=== PATIENT | female | born 1970 | race African-American/Black ===

== ENCOUNTER 2017-08-12 03:24 | Inpatient (IN) ==
[2017-08-12] MEDS ORDERED: METOCLOPRAMIDE 10 MG/2 ML VIAL ONE (04:19)
[2017-08-12] MEDS ORDERED: LORazepam 2 MG/1 ML VIAL ONE (04:20)
[2017-08-12] MEDS ORDERED: HYDROmorphone 2 MG/1 ML VIAL ONE (04:20)
[2017-08-12] MEDS ORDERED: DEXAMETHASONE 10 MG/1 ML VIAL ONE ×2 (07:24→09:26)
[2017-08-12] MEDS ORDERED: DEXAMETHASONE 10 MG/1 ML VIAL IV ONE (09:00)
[2017-08-12] MEDS ORDERED: ONDANSETRON 4 MG/2 ML VIAL IV PRN ×2 (10:20→11:54)
[2017-08-12 10:39] LABS: Basophils % 0.3 % (0.0-0.8); Eosinophils # 0.1 10*3/uL (0.0-0.87); Eosinophils % 1.7 % (0.00-10.9); Hematocrit 36.5 VOL% (35.7-47.0); Hemoglobin 12.1 GM/DL (12.0-16.0); Immature Granulocytes % 0.3 %; Immature Granulocytes Absolute 0.01 #; Lymphocytes # 1.1 10*3/uL (1.4-4.0); Lymphocytes % 31.3 % (21.3-54.2); Mean Corpuscular HGB Conc 33.2 GM/DL (32-36); Mean Corpuscular Hemoglobin 29 PG (27-34); Mean Corpuscular Volume 86.3 FL (87-102); Mean Platelet Volume 9.5 FL (9.6-12.0); Monocytes # 0.2 10*3/uL (0.11-0.8); Monocytes % 4.2 % (1.7-12.7); Neutrophils # 2.3 10*3/uL (1.4-7.4); Neutrophils % 62.2 % (38.7-73.9); Platelet Count 192 T/CUMM (130-400); Red Blood Count 4.23 MC/CUMM (3.8-5.5); Red Cell Distribution Width 13.8 % (9.3-17.3); White Blood Count 3.6 T/CUMM (4-12)
[2017-08-12] MEDS ORDERED: ACETAMINOPHEN 325 MG TABLET PO PRN (11:54)
[2017-08-12] MEDS ORDERED: ALPRAZolam 0.25 MG TABLET PO PRN (11:54)
[2017-08-12] MEDS ORDERED: traMADol 50 MG TABLET PO PRN (11:54)
[2017-08-12] MEDS ORDERED: BENZTROPINE 2 MG/2 ML AMP IV PRN (11:54)
[2017-08-12] MEDS ORDERED: ALUMINUM/MAGNES/SIMETH MAX STR 30 ML UDCUP PO PRN (11:54)
[2017-08-12] MEDS ORDERED: LACTULOSE 20 GM/30 ML UDCUP PO PRN (11:54)
[2017-08-12] MEDS ORDERED: MYLANTA/LIDO VISC 2:1 300 ML BOTTLE SWISH/SWAL PRN (11:54)
[2017-08-12] MEDS ORDERED: LOPERAMIDE 2 MG CAPSULE PO PRN ×2 (11:54)
[2017-08-12] MEDS ORDERED: chlorproMAZINE INJ 25 MG in SODIUM CHLORIDE 0.9% 100 ML IV PRN (11:54)
[2017-08-12] MEDS ORDERED: diphenhydrAMINE CAP 25 MG CAPSULE PO PRN (11:54)
[2017-08-12] MEDS ORDERED: MAGNESIUM HYDROXIDE SUSP 30 ML UDCUP PO PRN (11:54)
[2017-08-12] MEDS ORDERED: MYLANTA/LIDO VISC 2:1 300 ML BOTTLE SWISH/SPIT PRN (11:54)
[2017-08-12] MEDS ORDERED: chlorproMAZINE INJ 50 MG in SODIUM CHLORIDE 0.9% 100 ML IV PRN (11:54)
[2017-08-12] MEDS ORDERED: PROMETHAZINE INJ 25 MG in SODIUM CHLORIDE 0.9% 50 ML IV PRN (11:54)
[2017-08-12] MEDS ORDERED: guaiFENesin 200 MG/10 ML UDCUP PO PRN (11:54)
[2017-08-12] MEDS ORDERED: TEMAZEPAM 7.5 MG CAPSULE PO PRN (11:54)
[2017-08-12] MEDS ORDERED: chlorproMAZINE 25 MG TABLET PO PRN (11:54)
[2017-08-12] MEDS ORDERED: PNEUMOCOCCAL VACCINE (13 VALENT) 0.5 ML SYRINGE IM ONE (12:04)
[2017-08-12] MEDS ORDERED: INFLUENZA VIRUS VACCINE 0.5 ML SYRINGE IM ONE (12:04)
[2017-08-12 12:31] LABS: Alkaline Phosphatase 88 U/L (45-117); Calcium 7.9 MG/DL (8.5-10.1)
[2017-08-12 12:32] LABS: Alanine Aminotransferase 18 U/L (13-56); Aspartate Amino Transferase 22 U/L (0-37); Bilirubin,Total < 0.39 MG/DL (0.2-1.0); Blood Urea Nitrogen 11 MG/DL (7-18); Glucose 94 MG/DL (74-106); Potassium 3.4 MMOL/L (3.5-5.1); Sodium 143 MMOL/L (136-145); Total Protein 6.1 G/DL (6.4-8.3)
[2017-08-12] MEDS: DEXAMETHASONE 4 MG/1 ML VIAL IV SCH ×2 (16:22→20:48)
[2017-08-13] MEDS: DEXAMETHASONE 4 MG/1 ML VIAL IV SCH ×4 (03:35→20:12)
[2017-08-13 08:45] LABS: Basophils % 0.1 % (0.0-0.8); Hematocrit 42.3 VOL% (35.7-47.0); Immature Granulocytes % 0.4 %; Immature Granulocytes Absolute 0.04 #; Lymphocytes # 1.5 10*3/uL (1.4-4.0); Lymphocytes % 13.8 % (21.3-54.2); Mean Corpuscular HGB Conc 33.6 GM/DL (32-36); Mean Corpuscular Hemoglobin 29 PG (27-34); Mean Corpuscular Volume 85.5 FL (87-102); Mean Platelet Volume 9.5 FL (9.6-12.0); Monocytes # 0.2 10*3/uL (0.11-0.8); Monocytes % 2.1 % (1.7-12.7); Neutrophils # 9.3 10*3/uL (1.4-7.4); Neutrophils % 83.6 % (38.7-73.9); Red Blood Count 4.95 MC/CUMM (3.8-5.5); Red Cell Distribution Width 13.9 % (9.3-17.3)
[2017-08-13 09:12] LABS: Hemoglobin 14.2 GM/DL (12.0-16.0); Platelet Count 271 T/CUMM (130-400); White Blood Count 11.1 T/CUMM (4-12)
[2017-08-13 09:17] LABS: Albumin 3.6 G/DL (3.4-5.0); Bilirubin,Total 0.4 MG/DL (0.2-1.0); Calcium 9.9 MG/DL (8.5-10.1); Osmolality,Calculated 277.5 MOS/KG (273-304); Potassium 4.1 MMOL/L (3.5-5.1); Total Protein 7.4 G/DL (6.4-8.3)
[2017-08-14] MEDS: DEXAMETHASONE 4 MG/1 ML VIAL IV SCH ×2 (02:46→09:43)
[2017-08-14] MEDS ORDERED: HEPARIN LOCK FLUSH 500 UNIT/5 ML SYRINGE IV ONE (08:49)
[2017-08-14 12:27] VITALS: BP 145/84
== END 2017-08-14 13:00 | disposition home or self-care (01) | DRG 41 ==
LOC: N.4E 03:25 → N.ED 09:06 → N.4E 09:43 → OBSVTOIN 10:00
PROVIDERS: ADMIT Specialist; ATTEND Specialist